=== PATIENT | female | born 1980 | race African-American/Black ===

== ENCOUNTER 2021-06-29 12:33 | Emergency (ER) | payer MEDICAID ==
[~2021-06-29] VITALS: Ht 172.7 cm; Wt 98.0 kg
[2021-06-29] MEDS ORDERED: CEPHALEXIN500 MG PO (15:16)
[2021-06-29 15:31] VITALS: BP 145/65
== END 2021-06-29 15:33 | disposition home or self-care (01) ==
LOC: M.ERS 12:33
DX: S61.411A Laceration without foreign body of right hand, initial encounter (principal); Z90.49 Acquired absence of other specified parts of digestive tract; W01.0XXA Fall on same level from slipping, tripping and stumbling without subsequent striking against object, initial encounter; Y93.89 Activity, other specified; Y92.89 Other specified places as the place of occurrence of the external cause; Y99.8 Other external cause status